=== PATIENT | female | born 1970 | race Caucasian/White ===

== ENCOUNTER 2017-04-03 22:35 | Inpatient (IN) ==
[2017-04-03] MEDS ORDERED: Lidocaine 1% 20 ML MDV INFILT ONE (23:04)
[2017-04-03] MEDS ORDERED: Orphenadrine 60 MG/2 ML VIAL IM ONE (23:04)
[2017-04-03] MEDS ORDERED: *HR* HYDROmorphone (PF) 1 MG/ML SYRINGE IM ONE (23:04)
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
[2017-04-04 00:57] LABS: Basophils # 0.1 K/mcL (0.0-0.2); Basophils % 0.8 %; Eosinophils # 0.1 K/mcL (0.0-0.6); Eosinophils % 1.6 %; Hematocrit 41.9 % (35.3-44.9); Hemoglobin 14.4 g/dL (11.5-15.4); Immature Granulocytes % 0.1 % (0-4); Lymphocytes # 4.4 K/mcL (0.6-4.6); Lymphocytes % 59.8 %; Mean Corpuscular HGB Conc 34.4 g/dL (31.6-35.5); Mean Corpuscular Hemoglobin 30.6 pg (28.0-33.3); Mean Corpuscular Volume 89.1 fL (83.0-100.0); Monocytes # 0.6 K/mcL (0.0-1.3); Monocytes % 7.5 %; Neutrophils # 2.2 K/mcL (1.6-8.9); Platelet Count 258 K/mcL (140-400); Red Cell Distribution Width 12.5 % (11.5-14.5); Segmented Neutrophils % 30.2 %
[2017-04-04 01:06] LABS: Prothrombin Time 10.8 Seconds (9.4-12.1)
[2017-04-04 01:11] LABS: BUN/Creatinine Ratio 18 (6-26); Blood Urea Nitrogen 16 mg/dL (7-20); Calcium 9.6 mg/dL (8.6-10.8); Carbon Dioxide 26 mEq/L (19-29); Chloride 106 mEq/L (98-109); Glucose 89 mg/dL (70-99); Osmolality,Calculated 293 (280-300); Potassium 4.1 mEq/L (3.5-4.5); Sodium 141 mEq/L (136-145); eGFR For African Americans > 60 (> 60); eGFR For Non-African Americans > 60 (> 60)
[2017-04-04] MEDS ORDERED: *HR* HYDROmorphone (PF) 1 MG/ML SYRINGE IVP ONE (01:17)
[2017-04-04] MEDS ORDERED: *HR* OxyCODONE Immed Rel 5 MG TABLET PO PRN (09:41)
[2017-04-04] MEDS ORDERED: Acetaminophen 325 MG TABLET PO PRN (09:41)
[2017-04-04] MEDS ORDERED: Naloxone 0.4 MG/ML INJ IVP PRN (09:41)
[2017-04-04] MEDS ORDERED: Ondansetron 4 MG/2 ML VIAL IVP PRN (09:41)
[2017-04-04] MEDS: *HR* HYDROmorphone (PF) 1 MG/ML SYRINGE IVP PRN ×4 (09:55→22:17)
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
[2017-04-04] MEDS ORDERED: *HR* Heparin 5,000 UNIT/ML VIAL SQ SCH (16:00)
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
[2017-04-05] MEDS: *HR* HYDROmorphone (PF) 1 MG/ML SYRINGE IVP PRN ×7 (03:34→20:32)
[2017-04-05 05:23] LABS: Basophils % 0.7 %; Eosinophils # 0.1 K/mcL (0.0-0.6); Eosinophils % 2.4 %; Hematocrit 38.2 % (35.3-44.9); Immature Granulocytes % 0.2 % (0-4); Lymphocytes # 3.7 K/mcL (0.6-4.6); Lymphocytes % 63.2 %; Mean Corpuscular Hemoglobin 29.9 pg (28.0-33.3); Mean Corpuscular Volume 90.7 fL (83.0-100.0); Mean Platelet Volume 10.4 fL (9.4-12.4); Monocytes # 0.5 K/mcL (0.0-1.3); Monocytes % 8.1 %; Neutrophils # 1.5 K/mcL (1.6-8.9); Platelet Count 238 K/mcL (140-400); Red Blood Count 4.21 M/mcL (3.82-4.97); Red Cell Distribution Width 12.5 % (11.5-14.5); Segmented Neutrophils % 25.4 %
[2017-04-05 05:32] LABS: BUN/Creatinine Ratio 21 (6-26); Blood Urea Nitrogen 18 mg/dL (7-20); Calcium 8.8 mg/dL (8.6-10.8); Carbon Dioxide 29 mEq/L (19-29); Chloride 105 mEq/L (98-109); Glucose 99 mg/dL (70-99); Osmolality,Calculated 290 (280-300); Potassium 4.1 mEq/L (3.5-4.5); Sodium 139 mEq/L (136-145); eGFR For African Americans > 60 (> 60); eGFR For Non-African Americans > 60 (> 60)
[2017-04-05 05:41] LABS: Hemoglobin 12.6 g/dL (11.5-15.4)
--- NOTE | 2017-04-05 08:24 | Internal Med Progress Note ---
Date of Encounter: 04/05/17 Time of Encounter: 08:23 - Assessment and plan (1) Hardware failure Current Visit: Yes Status: Acute Assessment and plan: X ray of lumbar spine is showing fracture of one f the metallic fixation rods of lumbar spine Due to her intractable pain , she would get benefit with surgery Pt was evaluated by Dr. Worrell who is planning on taking her to OR later today She is at low risk for surgeries like hardware removal from lumbar spine Will get an EKG as part of pre op work up Reviewed her CBC and Electrolytes (2) Low back pain Current Visit: Yes Status: Acute Assessment and plan: Cont IV and PO analgesics PRN PT / OT eval Qualifiers: Chronicity: acute Back pain laterality: midline Sciatica presence: without sciatica Qualified Code(s): M54.5 - Low back pain (3) DVT prophylaxis Current Visit: Yes Status: Acute Assessment and plan: on SQ Heparin (4) History of lumbar spinal fusion Current Visit: Yes Status: Chronic - Subjective Interval history: Ms. Hart is a 47 year old female with no significant past medical history presented to the hospital for evaluation of back pain. She tripped over her dog 2 days ago and fell to the ground and started experiencing left arm pain. She went to urgent care and had x-rays which showed a broken titanium philly in her back. She was discharged home. She had worsening, severe, dull and aching lower back pain, worse when attempting to ambulate and better with rest. She was admitted here for intractable lower back pain. Her pain is well controlled with current pain meds. Her current pain level 4/10. Denied any CP / SOB. No GI / symptoms - Constitutional Vitals: Temp Pulse Resp BP Pulse Ox 97.7 F 66 20 102/66 93 04/05/17 07:47 04/05/17 07:47 04/05/17 07:47 04/05/17 07:47 04/05/17 07:47 General appearance: Present: A&O X 3, answers questions appropriately - Head Head exam: Present: atraumatic, normal inspection - Respiratory Respiratory exam: Present: CTAB. Absent: accessory muscle use, rales, rhonchi, wheezes - Cardiovascular Cardiovascular exam: Present: RRR, +S1, +S2. Absent: diastolic murmur, gallop, rubs, systolic murmur - GI/Abdominal GI/Abdominal exam: Present: normal bowel sounds, soft, no peritoneal signs. Absent: distended, tenderness - Back Exam Back exam: Present: vertebral tenderness - Neurological Exam Neurological exam: Present: alert, oriented X3 - Psychiatric Psychiatric exam: Present: depressed Internal Medicine: Result - Labs CBC & Chem 7: 04/05/17 04:33 04/05/17 04:33 Labs: Short CBC 04/05/17 Range/Units 04:33 WBC 5.9 (4.3-11.1) K/mcL Hgb 12.6 D (11.5-15.4) g/dL Hct 38.2 (35.3-44.9) % Plt Count 238 (140-400) K/mcL Neutrophils # 1.5 L (1.6-8.9) K/mcL BMP 04/05/17 04:33 Sodium 139 Potassium 4.1 Chloride 105 Carbon Dioxide 29 BUN 18 Creatinine 0.84 Glucose 99 Calcium 8.8 - ABG Interpretation ABG results: PT/INR, D-dimer PT 10.8 Seconds (9.4-12.1) 04/04/17 00:51 Consult Discharge Plan - Plan Referrals: Allan Solis, MARIA D [Primary Care Provider] - 04/11/17 8:40 am
--- NOTE | 2017-04-05 16:30 | Anesthesia Evaluation PreOp ---
Date of Encounter: 04/05/17 Time of Encounter: 16:25 - Past History Planned Operation: Exploration of Fusion & Hardware Removal Pulmonary History: Former smoker (quit 21yrs ago) CONSERVATION COORDINATOR History: Other (Acute back pain re: failed back hardware (Broken Bryan s/p Lumbar fusion 2008)) Other Medical History: Denies Any Significant HX Anesthesia History: No Prior Anesthetic Complications, Past Anesthesia (L- shoulder scope 02/2017, Hyster, C6-7 -spine fusion, Lumbar fusion) : No Test: Negative Alcohol Use: none Drug use: none Medications and Allergies No Known Home Drugs 04/04/17 [History] 3 Allergy/AdvReac Type Severity Reaction Status Date / Time Penicillins Allergy Rash Verified 05/25/15 18:53 - Meds/Allergy Pre-op Review Medications Reviewed: Yes Allergies Reviewed: Yes Beta Blockers on Current Med List: No Anesthesia Results - Labs 04/05/17 04:33 04/05/17 04:33 Laboratory Results WBC 5.9 K/mcL (4.3-11.1) 04/05/17 04:33 RBC 4.21 M/mcL (3.82-4.97) 04/05/17 04:33 Hgb 12.6 g/dL (11.5-15.4) D 04/05/17 04:33 Hct 38.2 % (35.3-44.9) 04/05/17 04:33 MCV 90.7 fL (83.0-100.0) 04/05/17 04:33 MCH 29.9 pg (28.0-33.3) 04/05/17 04:33 MCHC 33.0 g/dL (31.6-35.5) 04/05/17 04:33 RDW 12.5 % (11.5-14.5) 04/05/17 04:33 Plt Count 238 K/mcL (140-400) 04/05/17 04:33 MPV 10.4 fL (9.4-12.4) 04/05/17 04:33 Immature Gran % 0.2 % (0-4) 04/05/17 04:33 Seg Neutrophils % 25.4 % 04/05/17 04:33 Lymphocytes % 63.2 % 04/05/17 04:33 Monocytes % 8.1 % 04/05/17 04:33 Eosinophils % 2.4 % 04/05/17 04:33 Basophils % 0.7 % 04/05/17 04:33 Neutrophils # 1.5 K/mcL (1.6-8.9) L 04/05/17 04:33 Lymphocytes # 3.7 K/mcL (0.6-4.6) 04/05/17 04:33 Monocytes # 0.5 K/mcL (0.0-1.3) 04/05/17 04:33 Eosinophils # 0.1 K/mcL (0.0-0.6) 04/05/17 04:33 Basophils # 0.0 K/mcL (0.0-0.2) 04/05/17 04:33 PT 10.8 Seconds (9.4-12.1) 04/04/17 00:51 INR 1.0 04/04/17 00:51 APTT 30.0 Seconds (26.0-36.0) 04/04/17 00:51 Sodium 139 mEq/L (136-145) 04/05/17 04:33 Potassium 4.1 mEq/L (3.5-4.5) 04/05/17 04:33 Chloride 105 mEq/L (98-109) 04/05/17 04:33 Carbon Dioxide 29 mEq/L (19-29) 04/05/17 04:33 BUN 18 mg/dL (7-20) 04/05/17 04:33 Creatinine 0.84 mg/dL (0.57-1.11) 04/05/17 04:33 Est GFR ( Amer) > 60 (> 60) 04/05/17 04:33 Est GFR (Non-Af Amer) > 60 (> 60) 04/05/17 04:33 BUN/Creatinine Ratio 21 (6-26) 04/05/17 04:33 Glucose 99 mg/dL (70-99) 04/05/17 04:33 Calculated Osmolality 290 (280-300) 04/05/17 04:33 Calcium 8.8 mg/dL (8.6-10.8) 04/05/17 04:33 Magnesium 2.0 mg/dL (1.6-2.6) 04/05/17 04:33 Anesthesia Exam Vital Signs Temp Pulse Resp BP Pulse Ox 04/05/17 14:59 97.9 F 67 18 104/70 98 04/05/17 10:42 97.9 F 72 18 107/71 97 04/05/17 07:47 97.7 F 66 20 102/66 93 04/05/17 02:58 97.8 F 57 18 98/59 96 04/04/17 23:13 97.8 F 64 18 100/62 97 04/04/17 18:49 97.8 F 68 20 108/70 99 Intake and Output 04/05/17 04/05/17 04/05/17 07:59 15:59 23:59 Intake Total 240 / 240 Balance 240 / 240 Intake: Oral 240 / 240 Other: Meal Breakfast Percent of Meal Consumed 45% # Voids 1 1 Weight 55.293 kg Patient Weight 04/05/17 23:59 Weight 55.293 kg Height: 5'6" Weight: 121# BMI = 19.7 NPO (# of Hours): MNoce - HEENT Pupil (Motor): Pupils equal, EOMI Mallampati: II Teeth: Edentulous Denture Type: Upper: Complete Oral Opening: Greater than 3 - CONSERVATION COORDINATOR LOC: Oriented CONSERVATION COORDINATOR Motor: Normal RUE, Normal LUE, Normal RLE, Normal LLE, Normal Face CONSERVATION COORDINATOR Sensory: Normal: RUE, LUE, RLE, LLE, Face - Cardiac Rhythm: Regular Murmur: None - Pulmonary Breath Sounds: bilateral Clear Respiratory Effort: Symmetrical Anesthesia Assess/Plan ASA Score: 2 Modified Mary Scale for Level of Consciousness: Cooperative, oriented, and tranquil Anesthetic Plan: General Monitoring Plan: Standard Monitors Recovery Plan: PACU Anes Supervising Prov Stmt: Pt seen/evaluated, R&B Discussed, questions answered and consent obtained. Dash Blair MD
[2017-04-05] MEDS ORDERED: *HR* Propofol 200 MG/20 ML VIAL IVP ONE (17:55)
[2017-04-05] MEDS ORDERED: *HR* FentaNYL (PF) 100 MCG/2 ML VIAL ONE (17:55)
[2017-04-05] MEDS ORDERED: *HR* Midazolam HCl 2 MG/2 ML VIAL ONE (17:55)
[2017-04-05] MEDS ORDERED: Lidocaine -MPF 2% 2 ML VIAL ONE (17:56)
[2017-04-05] MEDS ORDERED: Lidocaine -MPF 4% 5 ML AMPUL ONE (17:56)
[2017-04-05] MEDS ORDERED: Gabapentin 300 MG CAPSULE ONE (17:57)
[2017-04-05] MEDS ORDERED: Acetaminophen IV 1,000 MG/100 ML INFUS..BTL ONE (17:57)
[2017-04-05] MEDS ORDERED: Clindamycin 900 MG/50 ML 900 MG/50 ML IV.SOLN IVPB ONE (18:13)
[2017-04-05] MEDS ORDERED: Ondansetron 4 MG/2 ML VIAL IVP PRN ×2 (18:32→21:19)
[2017-04-05] MEDS ORDERED: *HR* Rocuronium Bromide 50 MG/5 ML VIAL ONE (18:44)
[2017-04-05] MEDS ORDERED: SUGAMMADEX SODIUM 500 MG/5 ML VIAL IV ONE (19:15)
[2017-04-05] MEDS ORDERED: Neostigmine Methylsulfate 3 MG/3 ML SYRINGE ONE (19:17)
--- NOTE | 2017-04-05 19:44 | Orthopedic Operative Note ---
Date of procedure: 04/05/17 Pre-op diagnosis: Failed hardware, status post lumbar fusion Post-op diagnosis: same Operation/Findings: Exploration of fusion, removal of hardware lumbar spine:The patient was brought to the operative theater where she underwent general endotracheal anesthesia. She was given antibiotics prior to the start of the procedure. Compression boots and stockings were used for deep vein thrombosis prophylaxis. The patient was placed prone on a Oc table. The back was prepped and draped in the usual sterile fashion. An incision was marked and centered over the T1- L4 interspaces which was a paramedian incision 2 cm to the right of the midline. Location of the bilateral pedicle screws and rods was confirmed by biplanar fluorographic views. We noted a fracture of the philly on the right side between the middle 2 pedicle screws between L1 and L3. We used Bovie cautery to make an incision and then this incision was deepened through the lumbar fascia. Bovie cautery and Matias elevators were used to reflect the paraspinal musculature to the lateral extent of the transverse processes of L1-L4. We palpated the area of the facets and there was no evidence of pseudarthrosis when this fusion was explored. We then used a liam cutting power we wheel to cut through the philly distal to the L1 screw. Once this was removed this resulted in paired philly/pedicle screw construct T12-L1 and L3 and L4 on the right side. We copiously irrigated the wound and then closed the wound in layers with 1 Vicryl for the lumbar fascia, 2-0 Vicryl for the subcutaneous tissue, and Dermabond was used for skin closure. Sterile dressings were placed over the wound, the patient was turned supine in a hospital bed, and was extubated in the operative theater. All sponge needles and instrument counts were correct at the end of the procedure. The patient tolerated the procedure well without complications. Anesthesia: GETA Surgeon: Robel Worrell Jr Estimated blood loss (cc): 75 Condition: stable Disposition: PACU
[2017-04-05] MEDS ORDERED: Ringers Solution, Lactated 1,000 ML ONE (20:24)
[2017-04-05] MEDS ORDERED: *HR* Promethazine 25 MG/ML VIAL ONE (20:24)
[2017-04-05] MEDS ORDERED: *HR* Promethazine 25 MG/ML VIAL IVP PRN (20:43)
[2017-04-05] MEDS ORDERED: Ringers Solution, Lactated 1,000 ML IVC SCH ×2 (20:45→21:19)
--- NOTE | 2017-04-05 21:15 | Anesthesia Evaluation Post Op ---
Date of Encounter: 04/05/17 Time of Encounter: 21:15 - Vital Signs Vital Signs: Last Vital Signs Temp 97.9 F 04/05/17 20:59 Pulse 64 04/05/17 20:59 Resp 12 04/05/17 20:59 BP 107/70 04/05/17 20:59 Pulse Ox 100 04/05/17 20:59 - Lungs Lungs: Clear Ascult./Percussion - Airway Airway: Non-obstructed - Cardiovascular Regular Rate - Mental Status Mental Status: Alert & Oriented, Answers Appropriately - Pain Pain Scale: 3 - Nausea Vomiting Nausea Vomiting: Not Present - Hydration Hydration: NPO - Discharge PostOp Status: Transfer Patient to floor
[2017-04-05] MEDS ORDERED: Acetaminophen 325 MG TABLET PO PRN (21:19)
[2017-04-05] MEDS ORDERED: *HR* Morphine 2 MG/ML SYRINGE IVP PRN (21:19)
[2017-04-05] MEDS ORDERED: *HR* OxyCODONE Immed Rel 5 MG TABLET PO PRN (21:19)
[2017-04-05] MEDS ORDERED: Naloxone 0.4 MG/ML INJ IVP PRN (21:19)
[2017-04-06] MEDS: Clindamycin 600 MG/50 ML 600 MG/50 ML IV.SOLN IVPB SCH ×2 (05:09→13:40)
[2017-04-06 10:28] VITALS: BP 103/67
--- NOTE | 2017-04-06 14:48 | Spine Progress Note ---
Date of Encounter: 04/06/17 Time of Encounter: 14:47 - Assessment and Plan (1) History of lumbar spinal fusion Current Visit: Yes Status: Chronic On exam she is lying in bed in moderate distress secondary to back pain. Afebrile vital signs stable. She has tenderness to palpation in the mid lumbar region. She is neurovascularly intact with regard to her bilateral lower extremities. She has no clonus. Radiographs including AP and lateral views of the lumbar spine reveal previous lumbar burst fracture now healed with bilateral screw/philly construct with cross- links L1-L5. There is a broken philly indicating failed hardware present. Impression: 1) history of lumbar fusion 2) history of lumbar burst fracture 3 ) failed lumbar hardware 4) acute back pain secondary to failed hardware Plan: I had a long discussion with the patient regarding nonoperative and operative treatment. Due to her significant pain and disability a find it reasonable to consider surgery in the form of exploration of fusion, removal of hardware lumbar spine. Risks benefits possible complications and returned was were discussed and the patient would like to proceed. The patient descension this be cleared by the hospitalist service and medically optimized prior to surgical intervention. I will plan to add on the case tomorrow. She should be nothing by mouth after early breakfast and secondary to her allergy to penicillin, vancomycin 1 g IV on-call to OR should be implemented. Subjective Principal diagnosis: Failed hardware, status post lumbar fusion Interval history: The patient is without complaints. Afebrile vital signs are stable. Incision is clean dry and intact. Neurovascularly intact with regard to bilateral lower extremities. Assessment :stable. Plan mobilize ,continue analgesics, discharge planning. Objective Vital signs: Vital Signs Temp Pulse Resp BP Pulse Ox 04/06/17 10:23 97.8 F 78 16 103/67 99 04/06/17 07:38 97.5 F L 75 14 102/69 97 04/06/17 04:05 97.9 F 70 14 105/65 98 04/06/17 00:06 98.1 F 60 15 103/65 100 04/05/17 23:42 98.1 F 56 18 94/62 98 04/05/17 22:15 98 F 58 14 94/61 100 04/05/17 22:00 97.6 F 57 12 98/68 100 04/05/17 21:45 97.5 F L 61 14 111/76 100 04/05/17 21:30 97.5 F L 62 13 115/76 100 04/05/17 20:59 97.9 F 64 12 107/70 100 04/05/17 20:49 67 12 115/73 100 04/05/17 20:39 68 16 123/79 100 04/05/17 20:29 98.0 F 70 15 117/78 95 04/05/17 20:19 77 14 109/69 94 04/05/17 20:09 83 16 120/76 97 04/05/17 19:59 97.8 F 93 14 129/88 99 04/05/17 14:59 97.9 F 67 18 104/70 98 Intake and Output 04/05/17 04/06/17 04/06/17 23:59 07:59 15:59 Intake Total 400 / 400 50 / 50 360 / 360 Output Total 70 / 70 0 / 0 Balance 330 / 330 50 / 50 360 / 360 Intake: IV Fluids 400 / 400 50 / 50 Lactated Ringers 1,000 ML @ 25 400 / 400 mls/hr IVC .Q24H [facility] Rx#: [id number] Cleocin Premix 600 MG/50 ML 600 50 / 50 mg In 50 ml @ 50 mls/hr IVPB Q8H [facility] Rx#:[id number] Oral 360 / 360 Output: Urine 0 / 0 Estimated Blood Loss 70 / 70 Other: Meal Breakfast Percent of Meal Consumed 100% # Voids 1 Blood Glucose* 138 - Labs CBC & BMP: 04/05/17 04:33 04/05/17 04:33 Labs: Abnormal lab results Neutrophils # 1.5 K/mcL (1.6-8.9) L 04/05/17 04:33 Consult Discharge Plan - Plan Referrals: Allan Solis, TAX ASSISTANT [Primary Care Provider] - 04/11/17 8:40 am Prescriptions: HYDROcodone/Acet 5/325 mg [[place] 5-325 mg] 1 tab PO Q6H PRN #15 tab PRN Reason: Pain Sennosides/Docusate Sodium [Senna Plus] 1 each PO BID PRN #60 tablet PRN Reason: Constipation
--- NOTE | 2017-04-06 14:48 | Discharge Summary ---
Date of Encounter: 04/06/17 Time of Encounter: 12:45 - Discharge Diagnosis (1) Hardware failure Priority: Primary Status: Acute (2) Low back pain Priority: Primary Status: Acute Qualifiers: Chronicity: acute Back pain laterality: midline Sciatica presence: without sciatica Qualified Code(s): M54.5 - Low back pain (3) DVT prophylaxis Priority: Secondary Status: Acute (4) History of lumbar spinal fusion Priority: Secondary Status: Chronic - Discharge Medications Prescriptions: HYDROcodone/Acet 5/325 mg [[place] 5-325 mg] 1 tab PO Q6H PRN #15 tab PRN Reason: Pain Sennosides/Docusate Sodium [Senna Plus] 1 each PO BID PRN #60 tablet PRN Reason: Constipation Home Medications: Acetaminophen [Tylenol] 650 mg PO Q6HR PRN tablet 04/06/17 [Rx] HYDROcodone/Acet 5/325 mg [[place] 5-325 mg] 1 tab PO Q6H PRN #15 tab 04/06/17 [Rx ] Sennosides/Docusate Sodium [Senna Plus] 1 each PO BID PRN #60 tablet 04/06/17 [ Rx] Allergies/Adverse Reactions: 3 Allergy/AdvReac Type Severity Reaction Status Date / Time Penicillins Allergy Rash Verified 05/25/15 18:53 Procedures/tests Complete & Pending: Procedures Performed prior 72 hours Category Date Time Status EKG [ECG 12 lead ECG] [ECG] Routine Y 04/05/17 08:31 Completed Date of admission: 04/04/17 15:07 Primary care physician: Allan Solis CNP Consults: 04/05/17 21:19 Consult to Nurse Navigator [CONS] Routine Comment: spine navigator Consult to Occupational Therapy [CONS] Routine Comment: Evaluate, develop and implement POC Reason for Consult: Postoperative rehabilitation Consult to Physical Therapy [CONS] Routine Comment: Evaluate, develop and implement POC Reason for Consult: Postoperative rehabilitation - Patient Status Disposition: Home, Self-Care Condition: Good Overall status at discharge: patient is back to baseline - Discharge Instructions Follow Up With: Allan Solis CNP [Primary Care Provider] - 04/11/17 8:40 am Robel Worrell Jr, MD [Partnered Physician] - Additional Instructions: Please f/u with Ortho Surgery Dr. Worrell in 1-2 weeks - Diet and Activity Activity: increase activity as tolerated Diet: regular diet Hospital course: Ms. Hart is a 47 year old female with no significant past medical history presented to the hospital for evaluation of back pain. She tripped over her dog 2 days ago and fell to the ground and started experiencing left arm pain. She went to urgent care and had x-rays which showed a broken titanium philly in her back. She was discharged home. She had worsening, severe, dull and aching lower back pain, worse when attempting to ambulate and better with rest. She was admitted here for intractable lower back pain. Pt was evaluated by surgeon Dr. Worrell who did take her to OR y/d for exploration of fusion and removed hardware of lumbar spine. Post operatively pt has been doing well. Pain is tolerable and well controlled. She is able to ambulate well. Will d/c her home today, recommend to f/u with Dr. Worrell in 1-2 weeks. - Time Spent with Patient Total time spent providing and/or coordinating discharge services: - Constitutional Vitals: Temp Pulse Resp BP Pulse Ox 97.8 F 78 16 103/67 99 04/06/17 10:23 04/06/17 10:23 04/06/17 10:23 04/06/17 10:23 04/06/17 10:23 General appearance: Present: A&O X 3, answers questions appropriately - Head Head exam: Present: atraumatic, normal inspection - Neck Neck exam general surgery: Present: supple - Respiratory Respiratory exam: Present: CTAB. Absent: accessory muscle use, rales, rhonchi, wheezes - Cardiovascular Cardiovascular exam: Present: RRR, +S1, +S2. Absent: diastolic murmur, gallop, rubs, systolic murmur - GI/Abdominal GI/Abdominal exam: Present: soft. Absent: rebound, rigid, tenderness - Extremities Exam Extremities exam: Absent: calf tenderness, pedal edema, tenderness - Back Exam Back exam: Absent: CVA tenderness (L), CVA tenderness (R), tenderness, vertebral tenderness Additional comments: clean incision .. No signs of infection around surgical site - Neurological Exam Neurological exam: Present: alert, oriented X3 - Psychiatric Psychiatric exam: Present: normal affect, normal mood - VTE Documentation of Mechanical Device: Intermittent pneumatic compression device
== END 2017-04-06 17:15 | disposition home or self-care (01) | DRG 497 ==
LOC: 3BNU 22:35 → EMEROO 22:35 → 3BNU 04-04 01:54 → 3NENU 04-05 18:01
PROVIDERS: ADMIT Internal Medicine; ATTEND Registered Nurse

== ENCOUNTER 2020-04-24 13:28 | Observation (INO) ==
[~2020-04-24 13:28] MED LIST: Acetaminophen IV 1,000 MG/100 ML INFUS..BTL IVPB ONE; Famotidine 20 MG/2 ML VIAL IVP ONE
[2020-04-24] MEDS ORDERED: Clindamycin 900 MG/50 ML 900 MG/50 ML IV.SOLN IVPB ONE (13:48)
[2020-04-24] MEDS ORDERED: Ringers Solution, Lactated 1,000 ML IVC SCH ×2 (14:00→18:42)
[2020-04-24] MEDS ORDERED: Ondansetron 4 MG/2 ML VIAL IVP PRN ×2 (14:25→18:42)
[2020-04-24] MEDS ORDERED: Famotidine 20 MG/2 ML VIAL IVP ONE (14:43)
[2020-04-24] MEDS ORDERED: Acetaminophen IV 1,000 MG/100 ML INFUS..BTL IVPB ONE (14:43)
[2020-04-24] MEDS ORDERED: *HR* FentaNYL (PF) 100 MCG/2 ML VIAL ONE (15:11)
[2020-04-24] MEDS ORDERED: ROPIVACAINE/PF/NS 0.25% 1 EACH SYRINGE INTRAART ONE (15:11)
[2020-04-24] MEDS ORDERED: Ropivacaine/PF 0.5% 30 ML VIAL ONE (15:11)
[2020-04-24] MEDS ORDERED: *HR* Midazolam HCl 2 MG/2 ML VIAL ONE (15:11)
[2020-04-24] MEDS ORDERED: Ondansetron 4 MG/2 ML VIAL ONE (15:17)
[2020-04-24] MEDS ORDERED: *HR* Propofol 200 MG/20 ML VIAL IVP ONE (15:17)
[2020-04-24] MEDS ORDERED: Dexamethasone 4 MG/ML VIAL ONE (15:17)
[2020-04-24] MEDS ORDERED: Lidocaine -MPF 2% 2 ML VIAL ONE (15:17)
[2020-04-24] MEDS ORDERED: TOTAL JOINT MIXTURE (100ML) INTRAART ONE (15:40)
[2020-04-24] MEDS ORDERED: Povidone-Iodine 45 ML, Sodium Chloride IRRigation 1,000 ML IR ONE (15:40)
[2020-04-24] MEDS ORDERED: Vancomycin 1,000 MG VIAL ONE (16:15)
[2020-04-24] MEDS ORDERED: Ethanol\\Acetic Acid\\Na Ace\\Ben 1,000 ML IRRIG.SOLN IR ONE (16:15)
[2020-04-24] MEDS ORDERED: *HR* Magnesium Sulfate 1 GM/2 ML VIAL ONE (16:15)
[2020-04-24] MEDS ORDERED: *HR* HYDROMORPHONE 2 MG/ML VIAL ONE (16:42)
[2020-04-24] MEDS: *HR* HYDROmorphone PF 0.5 MG/0.5 ML SYRINGE IVP PRN ×2 (17:51→18:26)
[2020-04-24 17:57] LABS: Hematocrit 38.1 % (35.3-44.9); Hemoglobin 12.4 g/dL (11.5-15.4)
[2020-04-24] MEDS ORDERED: Naloxone 0.4 MG/ML INJ IVP PRN (18:42)
[2020-04-24] MEDS ORDERED: *HR* Dextrose 50 % in Water (Vial) 50 ML VIAL IVP PRN (18:42)
[2020-04-24] MEDS ORDERED: MOM Conc 10 ML UD.LIQ PO PRN (18:42)
[2020-04-24] MEDS ORDERED: *HR* Promethazine 25 MG/ML VIAL IM PRN (18:42)
[2020-04-24] MEDS ORDERED: Sennosides 8.6 MG TABLET PO PRN (18:42)
[2020-04-24] MEDS ORDERED: D5% in Water 1,000 ML IVC PRN (18:42)
[2020-04-24] MEDS ORDERED: Clindamycin 900 MG/50 ML 900 MG/50 ML IV.SOLN IVPB SCH (18:42)
[2020-04-24] MEDS ORDERED: Dextrose Gel 15 GM/37.5 ML TUBE PO PRN ×2 (18:42)
[2020-04-24] MEDS: Ascorbic Acid 500 MG TABLET PO SCH (19:50)
[2020-04-24] MEDS: *HR* OxyCODONE Immed Rel 5 MG TABLET PO PRN (20:54)
[2020-04-24] MEDS: Insulin LISPRO 300 UNITS/3 ML VIAL SQ SCH ×2 (20:56)
[2020-04-25] MEDS: Clindamycin 900 MG/50 ML 900 MG/50 ML IV.SOLN IVPB SCH ×2 (00:05→10:36)
[2020-04-25] MEDS: HYDROcodone BIT/Homatropine 5 MG TABLET PO PRN ×5 (00:45→21:32)
[2020-04-25 01:32] LABS: Basophils % 0.1 %; Hemoglobin 12.3 g/dL (11.5-15.4); Immature Granulocytes % 0.4 % (0-4); Lymphocytes % 6.1 %; Mean Corpuscular HGB Conc 32.4 g/dL (31.6-35.5); Mean Corpuscular Hemoglobin 29.5 pg (28.0-33.3); Mean Corpuscular Volume 91.1 fL (83.0-100.0); Mean Platelet Volume 10.3 fL (9.4-12.4); Monocytes # 0.6 K/mcL (0.0-1.3); Monocytes % 3.5 %; Neutrophils # 14.5 K/mcL (1.6-8.9); Platelet Count 251 K/mcL (140-400); Red Blood Count 4.17 M/mcL (3.82-4.97); Red Cell Distribution Width 12.2 % (11.5-14.5); Segmented Neutrophils % 89.9 %; White Blood Count 16.2 K/mcL (4.3-11.1)
[2020-04-25 01:50] LABS: BUN/Creatinine Ratio 21 (6-26); Blood Urea Nitrogen 18 mg/dL (6-20); Carbon Dioxide 20 mEq/L (23-29); Chloride 105 mEq/L (98-107); Glucose 191 mg/dL (70-105); Osmolality,Calculated 283 (280-300); Potassium 4.4 mEq/L (3.5-5.1); Sodium 133 mEq/L (136-145); eGFR For African Americans > 60 (> 60); eGFR For Non-African Americans > 60 (> 60)
[2020-04-25] MEDS: Insulin LISPRO 300 UNITS/3 ML VIAL SQ SCH ×3 (07:52→20:47)
[2020-04-25] MEDS ORDERED: NON-FORMULARY MEDICATION 1 EACH EACH (Multivitamin [One Daily Multivitamin] 1 TAB) PO SCH (09:00)
[2020-04-25] MEDS: Multivit/Ca/Min/Fe/FA 1 TAB TABLET PO SCH (10:37)
[2020-04-25] MEDS: Ascorbic Acid 500 MG TABLET PO SCH ×2 (10:37→17:31)
[2020-04-25] MEDS ORDERED: Lidocaine Jelly 11 ml Syringe MM PRN (14:10)
[2020-04-25] MEDS: Aspirin Enteric Coated 81 MG Tablet PO SCH (17:51)
[2020-04-25] MEDS: *HR* OxyCODONE Immed Rel 5 MG TABLET PO PRN (22:49)
[2020-04-26] MEDS: HYDROcodone BIT/Homatropine 5 MG TABLET PO PRN ×3 (01:36→10:20)
[2020-04-26] MEDS: *HR* OxyCODONE Immed Rel 5 MG TABLET PO PRN ×5 (03:35→21:48)
[2020-04-26] MEDS: Acetaminophen IV 1,000 MG/100 ML INFUS..BTL IVPB SCH ×2 (07:28→16:01)
[2020-04-26] MEDS: Aspirin Enteric Coated 81 MG Tablet PO SCH (07:57)
[2020-04-26] MEDS: Ascorbic Acid 500 MG TABLET PO SCH ×2 (07:58→16:01)
[2020-04-26] MEDS: Insulin LISPRO 300 UNITS/3 ML VIAL SQ SCH ×4 (07:59→21:24)
[2020-04-26 09:37] LABS: Basophils % 0.4 %; Eosinophils # 0.1 K/mcL (0.0-0.6); Eosinophils % 0.8 %; Hematocrit 32.8 % (35.3-44.9); Hemoglobin 10.9 g/dL (11.5-15.4); Immature Granulocytes % 0.3 % (0-4); Lymphocytes # 2.1 K/mcL (0.6-4.6); Lymphocytes % 29.6 %; Mean Corpuscular HGB Conc 33.2 g/dL (31.6-35.5); Mean Corpuscular Hemoglobin 29.8 pg (28.0-33.3); Mean Corpuscular Volume 89.6 fL (83.0-100.0); Mean Platelet Volume 10.4 fL (9.4-12.4); Monocytes # 0.6 K/mcL (0.0-1.3); Monocytes % 8.2 %; Neutrophils # 4.4 K/mcL (1.6-8.9); Platelet Count 203 K/mcL (140-400); Red Blood Count 3.66 M/mcL (3.82-4.97); Red Cell Distribution Width 12.5 % (11.5-14.5); Segmented Neutrophils % 60.7 %
[2020-04-26 09:40] LABS: White Blood Count 7.2 K/mcL (4.3-11.1)
[2020-04-26 09:58] LABS: BUN/Creatinine Ratio 13 (6-26); Blood Urea Nitrogen 9 mg/dL (6-20); Calcium 8.1 mg/dL (8.6-10.3); Carbon Dioxide 23 mEq/L (23-29); Chloride 105 mEq/L (98-107); Glucose 151 mg/dL (70-105); Osmolality,Calculated 282 (280-300); Potassium 3.9 mEq/L (3.5-5.1); Sodium 135 mEq/L (136-145); eGFR For African Americans > 60 (> 60); eGFR For Non-African Americans > 60 (> 60)
[2020-04-26] MEDS: Multivit/Ca/Min/Fe/FA 1 TAB TABLET PO SCH (10:24)
[2020-04-27] MEDS: Acetaminophen IV 1,000 MG/100 ML INFUS..BTL IVPB SCH ×3 (00:28→15:43)
[2020-04-27] MEDS: *HR* OxyCODONE Immed Rel 5 MG TABLET PO PRN ×2 (03:05→17:09)
[2020-04-27] MEDS: Insulin LISPRO 300 UNITS/3 ML VIAL SQ SCH ×3 (07:30→16:17)
[2020-04-27] MEDS: Aspirin Enteric Coated 81 MG Tablet PO SCH (07:44)
[2020-04-27] MEDS: Ascorbic Acid 500 MG TABLET PO SCH ×2 (07:44→16:19)
[2020-04-27] MEDS: Multivit/Ca/Min/Fe/FA 1 TAB TABLET PO SCH (07:49)
[2020-04-27 10:35] VITALS: BP 137/93
[2020-04-27] MEDS: HYDROcodone BIT/Homatropine 5 MG TABLET PO PRN (12:30)
== END 2020-04-27 17:44 | disposition home or self-care (01) ==
LOC: SAMDAY 13:28 → 3NENU 13:28
PROVIDERS: ADMIT Orthopaedic Surgery; ATTEND Orthopaedic Surgery